=== PATIENT | female | born 1985 | race Caucasian/White ===

== ENCOUNTER 2016-10-26 12:39 | Emergency (ER) | payer OTHER | END 2016-10-26 15:43 | disposition home or self-care (01) | LOC: ER 12:39 | DX: N20.0 Calculus of kidney (principal); R00.0 Tachycardia, unspecified; I10 Essential (primary) hypertension; F32.9 Major depressive disorder, single episode, unspecified; F17.210 Nicotine dependence, cigarettes, uncomplicated; Z87.442 Personal history of urinary calculi | CPT/HCPCS: 36415; 96372; J1885 ==

== ENCOUNTER 2016-11-01 08:07 | Emergency (ER) | payer OTHER | END 2016-11-01 10:30 | disposition home or self-care (01) | LOC: ER 08:07 | DX: N20.0 Calculus of kidney (principal); R31.9 Hematuria, unspecified; F17.210 Nicotine dependence, cigarettes, uncomplicated; Z79.899 Other long term (current) drug therapy | CPT/HCPCS: 36415; 96374; 96375; J1885 ==